=== PATIENT | male | born 1970 | race African-American/Black ===

== ENCOUNTER 2017-09-16 21:17 | Emergency (ER) | payer OTHER ==
[~2017-09-16] VITALS: Ht 180.3 cm; Wt 80.5 kg
[2017-09-16 21:21] VITALS: TEMP 98.1
[2017-09-16] MEDS ORDERED: CEPHALEXIN500 M1 PO (21:54)
[2017-09-16 22:22] VITALS: BP 133/97; PULSE 78
== END 2017-09-16 22:25 | disposition home or self-care (01) ==
LOC: COL.ER 21:17
DX: L70.0 Acne vulgaris (principal)